=== PATIENT | female | born 1990 | race Caucasian/White ===

== ENCOUNTER 2024-04-30 07:45 | Inpatient (IN) ==
[2024-04-30] MEDS ORDERED: OXYTOCIN 30 UNITS/NSS 30 UNITS/500 ML BAG IV PRN ×2 (08:04→17:43)
[2024-04-30] MEDS ORDERED: LIDOCAINE 1% LOCAL 20 ML VIAL INFIL PRN (08:04)
[2024-04-30 08:46] LABS: Hematocrit (blood only) 39.4 % (37.0-47.0); Hemoglobin 13.6 g/dl (12.0-16.0); Mean Corpuscular Hemoglobin 31.3 pg (25.0-34.0); Mean Corpuscular Hgb Conc 34.5 g/dL (32.0-36.0); Mean Corpuscular Volume 90.6 fL (80.0-100.0); Mean Platelet Volume 13.9 fL (9.4-12.4); Platelet Count 111 K/uL (130-400); RDW Coefficient of Variation 12.3 % (11.5-14.5); RDW Standard Deviation 40.2 fL (36.4-46.3); Red Blood Count 4.35 M/uL (4.20-5.40); White Blood Count 10.04 K/ul (4.8-10.8)
[2024-04-30] MEDS: SODIUM CHLORIDE 0.9% 1,000 ML IV SCH (09:02)
[2024-04-30] MEDS: OXYTOCIN 30 UNITS/NSS 30 UNITS/500 ML BAG IV PRN (09:02)
[2024-04-30] MEDS ORDERED: SODIUM CHLORIDE 0.9% 500 ML IV SCH (09:15)
--- NOTE | 2024-04-30 10:21 | Anesthesiology Consultation ---
Date of Service April 30, 2024 Assessment & Plan (1) Encounter for pre-operative examination: Chart Review Chart Review: Acceptable Risk for Labor Epidural History Height/Weight Height: 5 ft 2 in Weight: 60.781 kg Allergies Allergy/AdvReac Type Severity Reaction Status Date / Time No Known Allergies Allergy Verified 04/29/24 10:01 Medications Home Medications Medication Instructions Recorded Confirmed Last Taken 21-iron fu-folic acid PO 09/13/23 04/29/24 04/28/24 [ Complete] ondansetron 4 mg disintegrating 4 - 8 mg (1 - 2 x 4 mg) PO Q8H PRN 11/16/23 04/29/24 Unknown tablet nausea and vomiting #14 tabs blood sugar diagnostic (OneTouch #150 ea 12/26/23 04/29/24 Unknown Verio test strips) blood-glucose meter (OneTouch #1 ea 12/26/23 04/29/24 Unknown Verio Reflect Meter) lancets 33 gauge (OneTouch Delica #150 ea 12/26/23 04/29/24 Unknown Plus Lancet) acetone (urine) test (Ketone Urine #50 ea 01/10/24 04/29/24 Unknown Test strips) breast pump #1 ea 03/04/24 04/29/24 Unknown Active Medications Generic Name Dose Route Start Last Admin Trade Name Freq PRN Reason Stop Dose Admin Oxytocin 30 units in 500 mls @ 3 mls/hr 04/30/24 08:04 04/30/24 09:40 Pitocin 30 Units/Nss IV 05/02/24 08:03 0.18 units/hr .Q24H PRN 3 mls/hr Labor Induction/Augmentation Titration Protocol 0.18 UNITS/HR Past Medical History Medical History UTI (urinary tract infection) History of chicken pox Past Family History Family History Father Myocardial infarction Diabetes Coronary heart disease Mother Hypertension Denies family history of Ovarian cancer Prostate cancer Breast cancer Colorectal cancer Past Surgical History Surgical History H/O wisdom tooth extraction Social History Smoking Status: Never smoker Do You Dip or Chew Tobacco: No Hx Alcohol Use: No Alcohol type: beer, wine and hard liquor Hx Substance Use: No Physical Exam Vital Signs Last Vital Signs Temp 36.7 C 04/30/24 08:04 Pulse 72 04/30/24 10:15 Resp 20 04/30/24 08:04 BP 153/96 H 04/30/24 10:15 Testing Laboratory Results 04/30/24 08:21 04/30/24 08:50 POC Glucose 89
--- NOTE | 2024-04-30 10:50 | History & Physical Report ---
Date of Service April 30, 2024 Assessment & Plan (1) Encounter for induction of labor: (2) Gestational diabetes: Plan admit, iv, labs. fhts categ 1. pitocin induction. if no evidence of arom at next cx check will try again epidural when desires. Admission and Anticipated Discharge Date Admission Date: April 30, 2024 History of Present Illness Chief Complaint: induction Primary Care Provider: Paulo Montiel, III, ENVIRONMENTAL ENGINEERING ASSISTANT 33yo at 40wks ega presents to LD for planned elective induction. No concerns. No vb, ctx. +FM. No rom. PNC c/b 1. GDM, diet controlled. PNL rh pos, ri, gbs neg OBH: sab x 1 GYNH: nl paps no stds Allergies Allergy/AdvReac Type Severity Reaction Status Date / Time No Known Allergies Allergy Verified 04/29/24 10:01 Home Medications Medication Instructions Recorded Confirmed Type 21-iron fu-folic acid PO 09/13/23 04/29/24 History [ Complete] ondansetron 4 mg disintegrating 4 - 8 mg (1 - 2 x 4 mg) PO Q8H PRN 11/16/23 04/29/24 Rx tablet nausea and vomiting #14 tabs blood sugar diagnostic (OneTouch #150 ea 12/26/23 04/29/24 Rx Verio test strips) blood-glucose meter (OneTouch #1 ea 12/26/23 04/29/24 Rx Verio Reflect Meter) lancets 33 gauge (OneTouch Delica #150 ea 12/26/23 04/29/24 Rx Plus Lancet) acetone (urine) test (Ketone Urine #50 ea 01/10/24 04/29/24 Rx Test strips) breast pump #1 ea 03/04/24 04/29/24 Rx Patient History Medical History UTI (urinary tract infection) History of chicken pox Surgical History H/O wisdom tooth extraction Family History Father Myocardial infarction Diabetes Coronary heart disease Mother Hypertension Denies family history of Ovarian cancer Prostate cancer Breast cancer Colorectal cancer Social History (Updated 04/30/24 @ 08:03 by Joyce Huang RN) Smoking Status: Never smoker Second Hand Exposure: No; Do You Dip or Chew Tobacco: No; Hx Alcohol Use: No Hx Substance Use: No Preferred Language: Panamanian Communication Ability: Effective Visual Impairment: No Limitations Hearing Ability: Normal Low Altitude Air Defense Gunner Required: No Beliefs That Will Affect Care: None marital status: marital status details: Tim Tello [phone]) [phone] Current Living Situation: Spouse Current Living Situation Comment: lives with spouse, cats-spouse changing litter current occupational status: employed current occupation: Track Team Director Of Contracts at [employer] How many Children do You have: 0 Other Information That Helps Us Care for You: No Feels Safe at Home: Yes Safety Concerns: Feels Safe At This Time Childhood Exposure to Second-Hand Smoke: No Diet: regular Diet Comment: Diabetic caffeine: Yes Dental Care, Regularly: No Physical Activity Frequency: 3-4 Times per Week Seatbelt Use: always Sunscreen Use: Yes Assistive Devices: None Review of Systems as per Subjective / HPI Physical Exam Constitutional: WD/WN, vitals as above Respiratory: normal respiratory effort, lungs clear to auscultation Cardiovascular: Rate/Rhythm: regular rate and regular rhythm Gastrointestinal (Abdomen): soft gravid nt efw 6-7# Musculoskeletal: no edema nontender calves Neurologic: grossly normal Psychiatric: A+Ox3, euthymic affect Genitourinary: Manual OB Exam: + cervical dilation 3 cm, + cervical effacement 90%, + station -1 and + amniotic fluid (arom, no fluid seen, ? if successful) OB Exam Monitor Tracing: + external FHT monitor used, + external uterine monitor used, + category I and + normal FHT variability Results & Data Vital Signs (Past 12 Hours) Vital Signs Temp Pulse Resp BP Pulse Ox 04/30/24 10:41 75 97 04/30/24 10:36 65 97 04/30/24 10:31 77 97 04/30/24 10:15 72 153/96 H 04/30/24 09:05 67 134/92 04/30/24 08:04 98.1 F 20 04/30/24 08:00 66 126/86 Coding Level of Care Code None Diagnoses Encounter for induction of labor Z34.90 Gestational diabetes O24.419
[2024-04-30] MEDS: fentaNYL citrate PF 100 MCG/2 ML VIAL ONE (11:13)
[2024-04-30] MEDS: BUPIVACAINE 0.25% PF 30 ML VIAL ONE (11:13)
[2024-04-30] MEDS: fentANYL 2 MCG/ML BUPIVacaine 0.125%-NSS 100ML BAG ONE (11:13)
[2024-04-30] MEDS ORDERED: NALOXONE HCL 0.4 MG/1 ML VIAL/CARP IV PRN (11:20)
[2024-04-30] MEDS ORDERED: LIDOCAINE 2% MPF LOCAL 5 ML VIAL EPI PRN (11:20)
[2024-04-30] MEDS ORDERED: BUPIVACAINE 0.25% PF 30 ML VIAL EPI PRN (11:20)
[2024-04-30] MEDS ORDERED: ePHEDrine sulfate 50 MG/ML AMP IV PRN (11:20)
[2024-04-30] MEDS ORDERED: SODIUM CHLORIDE 0.9% PF INJ 10 ML VIAL EPI PRN (11:20)
[2024-04-30] MEDS ORDERED: fentANYL 2 MCG/ML BUPIVacaine 0.125%-NSS 100ML BAG EPI PRN (11:20)
[2024-04-30] MEDS ORDERED: fentaNYL citrate PF 100 MCG/2 ML VIAL EPI PRN (11:20)
[2024-04-30] MEDS ORDERED: ROPIVACAINE 0.5% PF 5 MG/ML 20 ML VIAL EPI PRN (11:20)
[2024-04-30] MEDS ORDERED: NALOXONE HCL 1 MG in SODIUM CHLORIDE 0.9% 1,000 ML IV PRN (11:20)
[2024-04-30] MEDS: LIDOCAINE 2%/EPINEPHRINE 1:200,000 20 ML PF ONE (11:24)
[2024-04-30] MEDS: ePHEDrine sulfate 50 MG/ML AMP ONE (12:00)
[2024-04-30] MEDS: SODIUM CHLORIDE 0.9% PF INJ 10 ML VIAL ONE (12:00)
--- NOTE | 2024-04-30 13:09 | Labor Progress Brief Note ---
Date of Service April 30, 2024 Subjective pt comfortable Assessment & Plan (1) Encounter for induction of labor: (2) Gestational diabetes: Plan begin 2nd stage. fhts categ 1. Admission and Anticipated Discharge Date Admission Date: April 30, 2024 Physical Exam Constitutional: WD/WN, vitals as above Genitourinary: Manual OB Exam: + cervical dilation 10 cm, + cervical effacement 100% and + station + 2 OB Exam Monitor Tracing: + external FHT monitor used, + external uterine monitor used, + category I and + normal FHT variability Results & Data Vital Signs (Past 12 Hours) Vital Signs Temp Pulse Resp BP Pulse Ox 04/30/24 13:07 77 152/91 H 04/30/24 13:06 89 98 04/30/24 13:01 81 98 04/30/24 12:56 95 H 98 04/30/24 12:52 88 147/94 H 04/30/24 12:51 76 98 04/30/24 12:46 61 98 04/30/24 12:41 63 98 04/30/24 12:36 68 98 04/30/24 12:33 71 161/90 H 04/30/24 12:31 70 97 04/30/24 12:28 69 127/85 04/30/24 12:26 61 97 04/30/24 12:23 61 129/85 04/30/24 12:21 66 97 04/30/24 12:18 70 132/86 04/30/24 12:16 64 95 04/30/24 12:11 97 04/30/24 12:11 65 04/30/24 12:11 62 134/89 04/30/24 12:07 70 130/86 04/30/24 12:06 69 97 04/30/24 12:02 75 133/88 04/30/24 12:01 73 96 04/30/24 11:58 64 136/86 04/30/24 11:56 60 97 04/30/24 11:53 70 153/88 H 04/30/24 11:51 71 97 04/30/24 11:46 66 133/87 97 04/30/24 11:42 72 129/86 04/30/24 11:41 70 97 04/30/24 11:37 67 136/90 04/30/24 11:36 70 97 04/30/24 11:31 73 96 04/30/24 11:29 74 20 126/83 04/30/24 11:27 76 132/84 04/30/24 11:26 80 97 04/30/24 11:25 71 20 127/81 04/30/24 11:23 72 20 132/89 04/30/24 11:21 73 134/91 96 04/30/24 11:19 75 20 134/90 04/30/24 11:17 68 20 139/95 04/30/24 11:16 61 97 04/30/24 11:15 66 151/96 H 04/30/24 11:13 65 146/94 H 04/30/24 11:11 96 04/30/24 11:11 65 04/30/24 11:11 62 149/89 H 04/30/24 11:10 65 136/83 04/30/24 11:07 72 169/89 H 04/30/24 11:06 72 97 04/30/24 11:01 80 96 04/30/24 10:56 69 97 04/30/24 10:51 69 97 04/30/24 10:46 68 97 04/30/24 10:41 75 97 04/30/24 10:36 65 97 04/30/24 10:31 77 97 04/30/24 10:15 72 153/96 H 04/30/24 09:05 67 134/92 04/30/24 08:04 98.1 F 20 04/30/24 08:00 66 126/86 Coding Level of Care Code None Diagnoses Encounter for induction of labor Z34.90 Gestational diabetes O24.419
[2024-04-30] MEDS: ONDANSETRON INJ 2 MG/ML 2 ML VIAL IV PRN (13:45)
--- NOTE | 2024-04-30 14:56 | Labor Progress Brief Note ---
Date of Service April 30, 2024 Subjective pushing well Assessment & Plan (1) Encounter for induction of labor: (2) Gestational diabetes: Plan cont 2nd stage. making good progress. fhts categ 1. Admission and Anticipated Discharge Date Admission Date: April 30, 2024 Physical Exam Constitutional: WD/WN, vitals as above Genitourinary: Manual OB Exam: + cervical dilation 10 cm, + cervical effacement 100% and + station + 3 OB Exam Monitor Tracing: + external FHT monitor used, + external uterine monitor used (q3 pit at 1), + category I, + normal FHT variability and + early decelerations present Results & Data Vital Signs (Past 12 Hours) Vital Signs Temp Pulse Resp BP Pulse Ox 04/30/24 14:53 83 146/84 H 04/30/24 14:51 95 H 97 04/30/24 14:46 79 97 04/30/24 14:43 18 04/30/24 14:43 99.1 F 18 04/30/24 14:41 78 97 04/30/24 14:38 81 136/82 04/30/24 14:36 80 96 04/30/24 14:31 99 H 97 04/30/24 14:30 88 20 92 04/30/24 14:26 91 H 99 04/30/24 14:24 96 H 20 141/89 H 04/30/24 14:21 79 97 04/30/24 14:16 92 H 95 04/30/24 14:14 96 H 86 L 04/30/24 14:11 107 H 98 04/30/24 14:07 85 137/86 04/30/24 14:06 96 04/30/24 14:06 91 H 04/30/24 14:06 98 H 94 04/30/24 14:01 90 96 04/30/24 14:00 20 04/30/24 14:00 20 04/30/24 13:56 100 H 93 04/30/24 13:53 107 H 130/87 04/30/24 13:52 96 H 90 04/30/24 13:51 92 H 96 04/30/24 13:46 113 H 97 04/30/24 13:41 115 H 100 04/30/24 13:37 93 H 18 141/89 H 04/30/24 13:36 97 H 96 04/30/24 13:35 88 90 04/30/24 13:31 93 H 97 04/30/24 13:30 88 91 04/30/24 13:26 92 H 97 04/30/24 13:25 84 90 04/30/24 13:21 91 H 98 04/30/24 13:16 88 98 04/30/24 13:11 75 98 04/30/24 13:10 20 04/30/24 13:10 98.2 F 20 04/30/24 13:07 77 20 152/91 H 04/30/24 13:06 89 98 04/30/24 13:01 81 98 04/30/24 12:56 95 H 98 04/30/24 12:52 88 147/94 H 04/30/24 12:51 76 98 04/30/24 12:46 61 98 04/30/24 12:41 63 98 04/30/24 12:36 68 98 04/30/24 12:33 71 161/90 H 04/30/24 12:31 70 97 04/30/24 12:28 69 127/85 04/30/24 12:26 61 97 04/30/24 12:23 61 129/85 04/30/24 12:21 66 97 04/30/24 12:18 70 132/86 04/30/24 12:16 64 95 04/30/24 12:11 97 04/30/24 12:11 65 04/30/24 12:11 62 134/89 04/30/24 12:07 70 130/86 04/30/24 12:06 69 97 04/30/24 12:02 75 133/88 04/30/24 12:01 73 96 04/30/24 11:58 64 136/86 04/30/24 11:56 60 97 04/30/24 11:53 70 153/88 H 04/30/24 11:51 71 97 04/30/24 11:46 66 133/87 97 04/30/24 11:42 72 129/86 04/30/24 11:41 70 97 04/30/24 11:37 67 136/90 04/30/24 11:36 70 97 04/30/24 11:31 73 96 04/30/24 11:29 74 20 126/83 04/30/24 11:27 76 132/84 04/30/24 11:26 80 97 04/30/24 11:25 71 20 127/81 04/30/24 11:23 72 20 132/89 04/30/24 11:21 73 134/91 96 04/30/24 11:19 75 20 134/90 04/30/24 11:17 68 20 139/95 04/30/24 11:16 61 97 04/30/24 11:15 66 151/96 H 04/30/24 11:13 65 146/94 H 04/30/24 11:11 96 04/30/24 11:11 65 04/30/24 11:11 62 149/89 H 04/30/24 11:10 65 136/83 04/30/24 11:07 72 169/89 H 04/30/24 11:06 72 97 04/30/24 11:01 80 96 04/30/24 10:56 69 97 04/30/24 10:51 69 97 04/30/24 10:46 68 97 04/30/24 10:41 75 97 04/30/24 10:36 65 97 04/30/24 10:31 77 97 04/30/24 10:15 72 153/96 H 04/30/24 09:05 67 134/92 04/30/24 08:04 98.1 F 20 04/30/24 08:00 66 126/86 Coding Level of Care Code None Diagnoses Encounter for induction of labor Z34.90 Gestational diabetes O24.419
--- NOTE | 2024-04-30 15:34 | Delivery Summary ---
Vaginal Delivery Summary Date of Service April 30, 2024 Vaginal Delivery Summary and 2nd Degree LAC The patient dilated to complete and pushed to deliver a viable female Apgars 8 and 9 via over 2nd degree perineal laceration. Shoulders and body rapidly delivered with maternal efforts. Mouth and nose bulb suctioned thereafter. was vigorous and crying at . Cord clamped at 30 seconds of life and to maternal abdomen where the cord was then doubly c lamped and cut. Placenta delivered spontaneously and intact, three-vessel cord. Hemostasis achieved with dilute pitocin and uterine massage and drainage of the bladder for approximately 50 cc under sterile conditions. Laceration repaired in routine fashion with 3-0 vicryl. Cervix and sulci intact. QBL 55 cc. Mother and baby stable in recovery. [facility] [place] Delivery Type Details: and 2nd Degree LAC
[2024-04-30] MEDS: BUPIVACAINE 0.25% PF 30 ML VIAL EPI STA (16:41)
[2024-04-30] MEDS: LIDOCAINE 2%/EPINEPHRINE 1:200,000 20 ML PF EPI STA (16:41)
[2024-04-30] MEDS: SODIUM CHLORIDE 0.9% PF INJ 10 ML VIAL EPI STA (16:41)
[2024-04-30] MEDS: fentaNYL citrate PF 100 MCG/2 ML VIAL EPI STA (16:41)
--- NOTE | 2024-04-30 17:08 | Anesthesia Procedure Note ---
Date of Service April 30, 2024 Anesthesia Post Epidural Note Vital Signs Vital Signs: Temp Pulse Resp BP Pulse Ox 99.1 F 83 18 119/90 91 04/30/24 14:43 04/30/24 17:07 04/30/24 16:37 04/30/24 17:07 04/30/24 15:20 Notes Mental Status: alert / awake / arousable and participated in evaluation Nausea / Vomiting: adequately controlled Pain: adequately controlled Airway Patency, RR, SpO2: stable & adequate BP & HR: stable & adequate Hydration State: stable & adequate Neuraxial Anesthesia: was administered and sensory block is resolving Anesthetic Complications: no major complications apparent and Pt Satisfied with anesthetic care Epidural: Removed without complications and With tip intact
[2024-04-30] MEDS ORDERED: HYDROCORTISONE ACETATE 25 MG SUPP PR PRN (17:43)
[2024-04-30] MEDS ORDERED: oxyCODONE/ACETAMINOPHEN 5mg/325mg TAB PO PRN (17:43)
[2024-04-30] MEDS: BENZOCAINE 20% SPRY 85 APPLN/85 GM CAN EXT PRN (18:29)
[2024-04-30] MEDS: DIPHTHER/TETAN/PERTUS Vaccine (Tdap, Adol/Adult) 0.5mL IM ONE (18:30)
[2024-04-30] MEDS: DOCUSATE SODIUM 100 MG CAP PO SCH (20:24)
[2024-05-01] MEDS: ACETAMINOPHEN 325 MG TAB PO PRN (03:23)
[2024-05-01] MEDS: IBUPROFEN 600 MG TAB PO PRN (03:23)
[2024-05-01 07:53] LABS: Hematocrit (blood only) 37.2 % (37.0-47.0); Hemoglobin 13.3 g/dl (12.0-16.0); Mean Corpuscular Hemoglobin 32.4 pg (25.0-34.0); Mean Corpuscular Hgb Conc 35.8 g/dL (32.0-36.0); Mean Corpuscular Volume 90.7 fL (80.0-100.0); Mean Platelet Volume 13.5 fL (9.4-12.4); Platelet Count 104 K/uL (130-400); RDW Coefficient of Variation 12.4 % (11.5-14.5); RDW Standard Deviation 41.1 fL (36.4-46.3); White Blood Count 16.81 K/ul (4.8-10.8)
--- NOTE | 2024-05-01 07:55 | Obstetrical Progress Note ---
Date of Service May 01, 2024 Assessment & Plan (1) Normal spontaneous vaginal delivery: (2) Gestational diabetes: Plan Both mom and baby doing well. Observe today. Monitor AM labs. Hopefully can go home tomorrow if they feel ready to go home. Admission and Anticipated Discharge Date Admission Date: April 30, 2024 Supervising Physician Co-Signing Physician Notes Resident Physician Supervision Note: I was present with Dr. Vargas during the history and exam. I discussed the case with the resident and agree with the findings and plan as documented in the note. Any exceptions or clarifications are listed here: stable doing well, , ambulating/eating/voiding without issue. abd soft ff 2 down nt, ext nt calves. ppd #1 s/p , plan labs due to bps in labor and plts 111, explained to pt rationale why. bps all normal since delivery. routine care. breast feeding, rhpos, ri. Documented By: Blanca Barrera MD, FACOG Subjective 12 hrs following at 40 WGA. No active complains Both mom and baby doing well. Pain: Mild, intermittent Lochia: Moderate Diet: Regular Ob diet Bowel movement: not yet Gas: Aware of passing,no abdominal distension Peeing: Normal, no bladder distension Ambulation: Normally Review of Systems Review of Systems: No SOB, chest pain, leg pain No dizziness, headache, palpitation No Blurring of vision , fever Physical Exam Physical Exam: General: Alert and oriented. No acute distress. CVS: S1 S2+ No murmurs, regular rhythm. Respiratory: CTA bilaterally. No rhonchi, wheezes, or crackles. No increased work of breathing. Abdomen: Bowel sound +. Soft, nontender Uterus: Fundus firm and palpable few cm below the umbilicus. Lower extremities: No LE edema. No deep calf pain. Results & Data Vital Signs (Past 12 Hours) Vital Signs Temp Pulse Resp BP Pulse Ox O2 Del Method 05/01/24 03:01 36.9 C 62 16 117/69 95 Room Air 04/30/24 22:39 36.8 C 76 18 138/81 96 Room Air
[2024-05-01 08:09] LABS: Albumin Globulin Ratio 1.2 (0.9-2); Albumin Level 3.1 gm/dl (3.4-5.0); BUN Creatinine Ratio 17.5 (10-20); Bilirubin,Total 0.4 mg/dl (0.2-1.0); Calcium 8.6 mg/dl (8.6-10.3); Creatinine Clr Calc Pharmacy 119.4 ml/min; Globulin 2.5 gm/dl (2.5-4.0); Total Protein 5.6 gm/dl (6.0-8.3)
[2024-05-01] MEDS: PRENATAL VITAMIN 1 TAB PO SCH (08:45)
[2024-05-01 16:51] VITALS: O2SAT 96
[2024-05-01] MEDS: bisacodyL 5 MG TABEC PO SCH (19:55)
[2024-05-01 22:03] VITALS: RESP 18
--- NOTE | 2024-05-02 07:40 | Obstetrical Progress Note ---
Date of Service May 02, 2024 Subjective Ambulation: ambulating normally Voiding: no voiding problems Passing Gas:: Yes Diet Tolerance:: regular diet Lochia:: Moderate Feeding Type:: breast feeding Physical Exam Constitutional WD/WN, vitals as above Respiratory normal respiratory effort; no respiratory distress and no labored breathing Cardiovascular Extremities: no calf tenderness Gastrointestinal (Abdomen) Inspection/Auscultation: abdomen normal to inspection; abdomen not distended Percussion/Palpation: abdomen soft; abdomen nontender, no guarding and abdomen not rigid Genitourinary OB Exam Abdomen: + fundal height Fundus: + firm and + relation to umbilicus (Below); not tender or not boggy Results & Data Vital Signs (Past 12 Hours) Vital Signs Temp Pulse Resp BP Pulse Ox O2 Del Method 05/02/24 00:15 36.6 C 64 18 119/76 96 Room Air 05/01/24 20:30 36.4 C L 74 18 124/83 96 Room Air
--- NOTE | 2024-05-02 08:21 | Obstetrical Progress Note ---
Date of Service May 02, 2024 Assessment & Plan (1) Normal spontaneous vaginal delivery: (2) Gestational diabetes: Plan Both mom and baby doing well. Monitor AM labs (Plt and WBC) Can go home if labs are stable. Admission and Anticipated Discharge Date Admission Date: April 30, 2024 Supervising Physician Co-Signing Physician Notes Patient seen with resident and agree with above findings and plan. Stable for discharge pending labs Subjective #2PPD following at 40 WGA. No active complains Both mom and baby doing well. Pain: Mild, intermittent Lochia: Moderate Diet: Regular Ob diet Bowel movement: not yet Gas: Aware of passing,no abdominal distension Peeing: Normal, no bladder distension Ambulation: Normally Review of Systems Review of Systems: No SOB, chest pain, leg pain No dizziness, headache, palpitation No Blurring of vision , fever Physical Exam Physical Exam: General: Alert and oriented. No acute distress. CVS: S1 S2+ No murmurs, regular rhythm. Respiratory: CTA bilaterally. No rhonchi, wheezes, or crackles. No increased work of breathing. Abdomen: Bowel sound +. Soft, nontender Uterus: Fundus firm and palpable few cm below the umbilicus. Lower extremities: No LE edema. No deep calf pain. Results & Data Vital Signs (Past 12 Hours) Vital Signs Temp Pulse Resp BP Pulse Ox O2 Del Method 05/02/24 00:15 36.6 C 64 18 119/76 96 Room Air 05/01/24 20:30 36.4 C L 74 18 124/83 96 Room Air (2) Gestational diabetes Gestational diabetes mellitus control: diet-controlled Trimester: third trimester Qualified Code(s): O24.410 - Gestational diabetes mellitus in , diet controlled
[2024-05-02 08:43] LABS: Hematocrit (blood only) 37.5 % (37.0-47.0); Hemoglobin 13.3 g/dl (12.0-16.0); Mean Corpuscular Hemoglobin 32.7 pg (25.0-34.0); Mean Corpuscular Hgb Conc 35.5 g/dL (32.0-36.0); Mean Corpuscular Volume 92.1 fL (80.0-100.0); Mean Platelet Volume 12.9 fL (9.4-12.4); Platelet Count 111 K/uL (130-400); RDW Coefficient of Variation 12.6 % (11.5-14.5); RDW Standard Deviation 42.4 fL (36.4-46.3); Red Blood Count 4.07 M/uL (4.20-5.40); White Blood Count 15.25 K/ul (4.8-10.8)
[2024-05-02 10:41] VITALS: BP 132/84; PULSE 79; TEMP 98.4
== END 2024-05-02 12:00 | disposition home or self-care (01) | DRG 807 ==
LOC: 4S1 07:45 → 4E2 18:45